=== PATIENT | female | born 1980 | race Caucasian/White ===

== ENCOUNTER 2018-05-03 12:08 | Emergency (ER) | payer OTHER, MEDICAID ==
[2018-05-03 12:38] VITALS: BP 115/63
[2018-05-03] MEDS ORDERED: KETOROLAC 60 MG/2 ML VIAL IM STA (13:06)
--- NOTE | 2018-05-03 13:09 | ED Physician Documentation ---
PD HPI BACK INJURY - Stated complaint Stated Complaint: BACK PX - History obtained from History obtained from: Patient - History of Present Illness Type of injury: Other (She was lifting boxes at work about a week ago and felt a pop in her back, she has had progressive pain that at times radiates down the left leg with a tingling sensation there. She has no right leg symptoms and no saddle anesthesia. She denies fevers. There is no possibility of . She was seen at another emergency department and had brief relief with Toradol but no help with the muscle relaxer they gave her.) Review of Systems Constitutional: denies: Fever, Chills GI: denies: Abdominal Pain, Nausea, Vomiting : denies: Now [facility] PAST MEDICAL HISTORY - Present Medications Home Medications: Ambulatory Orders Medication Instructions Recorded Confirmed Cyclobenzaprine [Flexeril] 10 mg 05/03/18 HYDROcod/ACETAM 5/325 [[place] 5/325] 1 - 2 ea PO Q6H PRN #15 tablet 05/03/18 predniSONE [Deltasone] 20 mg PO [id number] #21 tab 05/03/18 - Allergies Allergies/Adverse Reactions: Allergies Allergy/AdvReac Type Severity Reaction Status Date / Time erythromycin base Allergy Mild Hives Verified 05/03/18 12:39 Penicillins Allergy Mild Hives Verified 05/03/18 12:38 - Social History Does the pt smoke?: No Smoking Status: Never smoker PD ED PE NORMAL - Vitals Vital signs reviewed: Yes - General General: Alert and oriented X 3, No acute distress - Back Back: Other (She is tender in the paralumbar area and over the midline lumbar spine. She has a significantly diminished left L4/patellar reflex, with equal Achilles reflexes. She has difficulty with plantarflexion of the left foot, but mostly due to pain.) - Neuro Neuro: Alert and oriented X 3, Normal speech Results - Vitals Vitals: Vital Signs - 24 hr 05/03/18 12:34 Temperature 37.0 C Heart Rate 60 Respiratory 18 Rate Blood Pressure 115/63 O2 Saturation 100 Oxygen O2 Source Room air PD MEDICAL DECISION MAKING - ED course ED course: 38-year-old woman with work-related back injury, very likely to be an L4 left disc herniation based on history and physical examination. - Sepsis Event Vital Signs: Vital Signs - 24 hr 07/05/18 12:34 Temperature 37.0 C Heart Rate 60 Respiratory 18 Rate Blood Pressure 115/63 O2 Saturation 100 Oxygen O2 Source Room air Departure - Departure Disposition: 01 Home, Self Care Clinical Impression: Lumbosacral radiculopathy at L4 Condition: Good Record reviewed to determine appropriate education?: Yes Instructions: ED Sciatica Prescriptions: HYDROcod/ACETAM 5/325 [[place] 5/325] 1 - 2 ea PO Q6H PRN #15 tablet PRN Reason: Pain predniSONE [Deltasone] 20 mg PO [id number] #21 tab Comments: [place] as discussed. Return if worsening or if new symptoms develop. Do not drink or drive while taking narcotic pain medication. Note that many narcotic pain relievers also contain Tylenol/acetaminophen. Please ensure that your total dose of acetaminophen from all sources does not exceed 3 g (3000 mg) per day. You may get constipated while on this medication. Take a stool softener such as Colace twice a day while you are on it. Also add an [id number]-iwsddok laxative such as senna or MiraLAX on any day that you do not have a bowel movement. If you received a narcotic pain medication or sedative while in the emergency department, do not drive for the next 24 hours. Forms: Activity restrictions
== END 2018-05-03 13:44 | disposition home or self-care (01) ==
LOC: ED 12:08
DX: M54.17 Radiculopathy, lumbosacral region (principal); X50.0XXA Overexertion from strenuous movement or load, initial encounter; Y92.242 Post office as the place of occurrence of the external cause; Y99.0 Civilian activity done for income or pay
CPT/HCPCS: 96372; 99283